=== PATIENT | female | born 1965 | race Hispanic/Latino ===

== ENCOUNTER 2022-02-12 07:18 | Emergency (ER) | payer OTHER ==
[2022-02-12 08:03] LABS: Urine Blood 1+ (Negative); Urine Glucose Negative (Negative); Urine Protein Negative (Negative); Urine Specific Gravity 1.015 (1.005-1.030); Urine pH 5.5 (5.0-7.0)
--- NOTE | 2022-02-12 08:18 | EDPHYS ---
Physician Documentation [facility] Name: Obdulia Novak Age: 56 yrs Sex: Female : 1965 Arrival Date: 02/12/2022 Time: 07:20 Bed 12 Private MD: ED Physician Narinder Hinojosa HPI: 02/12 08:14 This 56 yrs old Female presents to ER via Ambulatory with complaints of adriel Urinary Problem. 08:14 The patient presents with pelvic pain, that is located in/on the suprapubic area. adriel Onset: The symptoms/episode began/occurred yesterday. Modifying factors: The symptoms are alleviated by self cath, the symptoms are aggravated by nothing. Associated signs and symptoms: The patient has no apparent associated signs or symptoms. Severity of symptoms: At their worst the symptoms were mild, in the emergency department the symptoms are unchanged. The patient has experienced similar episodes in the past, multiple times. Historical: - Allergies: 08:05 No Known Allergies; ss - Immunization history:: Client reports receiving the 2nd dose of the Covid vaccine. - Social history:: Smoking status: Patient denies any tobacco usage or history of. - Family history:: not pertinent. ROS: 08:14 Positive for urinary symptoms, retention. adriel 08:14 Constitutional: Negative for fever, chills, and weight loss, Eyes: Negative for injury, pain, redness, and discharge, ENT: Negative for injury, pain, and discharge, Neck: Negative for injury, pain, and swelling, Cardiovascular: Negative for chest pain, palpitations, and edema, Respiratory: Negative for shortness of breath, cough, wheezing, and pleuritic chest pain, Back: Negative for injury and pain, : Negative for injury, bleeding, discharge, and swelling, MS/Extremity: Negative for injury and deformity, Skin: Negative for injury, rash, and discoloration, Neuro: Negative for headache, weakness, numbness, tingling, and seizure, Psych: Negative for depression, anxiety, suicide ideation, homicidal ideation, and hallucinations, Allergy/Immunology: Negative for hives, rash, and allergies, Endocrine: Negative for neck swelling, polydipsia, polyuria, polyphagia, and marked weight changes, Hematologic/Lymphatic: Negative for swollen nodes, abnormal bleeding, and unusual bruising. 08:14 Abdomen/GI: Positive for abdominal pain, of the suprapubic area, right lower quadrant and left lower quadrant. Exam: 08:14 Constitutional: This is a well developed, well nourished patient who is awake, alert, adriel and in no acute distress. Head/Face: Normocephalic, atraumatic. Eyes: Pupils equal round and reactive to light, extra-ocular motions intact. Lids and lashes normal. Conjunctiva and sclera are non-icteric and not injected. Cornea within normal limits. Periorbital areas with no swelling, redness, or edema. ENT: Nares patent. No nasal discharge, no septal abnormalities noted. Tympanic membranes are normal and external auditory canals are clear. Oropharynx with no redness, swelling, or masses, exudates, or evidence of obstruction, uvula midline. Mucous membranes moist. Neck: Trachea midline, no thyromegaly or masses palpated, and no cervical lymphadenopathy. Supple, full range of motion without nuchal rigidity, or vertebral point tenderness. No Meningismus. Chest/axilla: Normal chest wall appearance and motion. Nontender with no deformity. No lesions are appreciated. Cardiovascular: Regular rate and rhythm with a normal S1 and S2. No gallops, murmurs, or rubs. Normal PMI, no JVD. No pulse deficits. Respiratory: Lungs have equal breath sounds bilaterally, clear to auscultation and percussion. No rales, rhonchi or wheezes noted. No increased work of breathing, no retractions or nasal flaring. Abdomen/GI: Soft, non-tender, with normal bowel sounds. No distension or tympany. No guarding or rebound. No evidence of tenderness throughout. Back: No spinal tenderness. No costovertebral tenderness. Full range of motion. Skin: Warm, dry with normal turgor. Normal color with no rashes, no lesions, and no evidence of cellulitis. MS/ Extremity: Pulses equal, no cyanosis. Neurovascular intact. Full, normal range of motion. Neuro: Awake and alert, GCS 15, oriented to person, place, time, and situation. Cranial nerves II-XII grossly intact. Motor strength 5/5 in all extremities. Sensory grossly intact. Cerebellar exam normal. Normal gait. Psych: Awake, alert, with orientation to person, place and time. Behavior, mood, and affect are within normal limits. Vital Signs: 08:02 BP 123 / 72; Pulse 77; Resp 16; Temp 98.2(TE); Pulse Ox 100% on R/A; Weight 62.6 kg; ss Height 5 ft. 4 in. (162.56 cm); Pain 0/10; 08:02 Body Mass Index 23.69 (62.60 kg, 162.56 cm) ss [place] Coma Score: 08:14 Eye Response: spontaneous(4). Verbal Response: oriented(5). Motor Response: obeys adriel commands(6). Total: 15. MDM: 07:30 Patient medically screened. adriel 08:16 Differential diagnosis: nonspecific abdominal pain, urinary tract infection. Data adriel reviewed: vital signs, nurses notes, lab test result(s), urinalysis. Data interpreted: groundwater monitoring technician: not applicable for this patient encounter. rate is 77 beats/min, rhythm is regular, Pulse oximetry: on room air. Test interpretation: by ED physician or midlevel provider:. Counseling: I had a detailed discussion with the patient and/or guardian regarding: the historical points, exam findings, and any diagnostic results supporting the discharge/admit diagnosis, lab results. 02/12 08:00 Order name: Urine Culture [facility] 02/12 08:03 Order name: Urine Dipstick-Ancillary; Complete Time: 08:13 [facility] 02/12 08:00 Order name: Urine Dipstick-Ancillary (obtain specimen); Complete Time: 08:04 adriel Administered Medications: No medications were administered Disposition Summary: 02/12/22 08:17 Discharge Ordered Location: Home adriel Problem: new adriel Symptoms: have improved adriel Condition: Stable adriel Diagnosis - Retention of urine, unspecified adriel Followup: adriel - With: Private Physician - When: 2 - 3 days - Reason: Recheck today's complaints, Continuance of care, Re-evaluation by your physician Followup: adriel - With: Matheus Pierson MD - When: 2 - 3 days - Reason: Recheck today's complaints, Continuance of care, Re-evaluation by your physician Discharge Instructions: - Discharge Summary Sheet adriel - Acute Urinary Retention, Female adriel - Acute Urinary Retention, Female, [id number] adriel Forms: - Medication Reconciliation Form adriel - Thank You Letter adriel - Antibiotic Education adriel - Prescription Opioid Use adriel Signatures: Dispatcher [employer] EDNarinder Blank MD MD cha Smirch, Shelby, ERICA RN ss
--- NOTE | 2022-02-12 08:18 | ER ---
Nurse's Notes [facility] Name: Obdulia Novak Age: 56 yrs Sex: Female : 1965 Arrival Date: 02/12/2022 Time: 07:20 Bed 12 Private MD: Diagnosis: Retention of urine, unspecified Presentation: 02/12 08:02 Chief complaint: Patient states: "I drove in from [place] and I forgot my catheter ss supplies. I just got too full to relax my bladder and I woke up needing to go really bad." Pt was given catheter and self cathed in bathroom before triage and states she feels better. Coronavirus screen: Client denies travel out of the [place] in the last 14 days. Ebola Screen: Patient denies exposure to infectious person. Patient denies travel to an Ebola-affected area in the 21 days before illness onset. Initial Sepsis Screen: Does the patient meet any 2 criteria? No. Patient's initial sepsis screen is negative. Does the patient have a suspected source of infection? No. Patient's initial sepsis screen is negative. Risk Assessment: Do you want to hurt yourself or someone else? Patient reports no desire to harm self or others. Onset of symptoms was February 12, 2022. 08:02 Method Of Arrival: Ambulatory ss 08:02 Acuity: ANNMARIE 4 ss Historical: - Allergies: 08:05 No Known Allergies; ss - Immunization history:: Client reports receiving the 2nd dose of the Covid vaccine. - Social history:: Smoking status: Patient denies any tobacco usage or history of. - Family history:: not pertinent. Screenin:05 Abuse screen: Denies threats or abuse. Denies injuries from another. Nutritional ss screening: No deficits noted. Tuberculosis screening: Never had TB. Fall Risk None identified. Assessment: 08:05 General: Appears in no apparent distress. comfortable, Behavior is calm, cooperative, ss Denies fever, feeling ill, fatigue, chills. Pain: Denies pain. Neuro: Level of Consciousness is awake, alert, obeys commands, Oriented to person, place, time, situation. Cardiovascular: Capillary refill < 3 seconds is brisk in bilateral fingers. Respiratory: Airway is patent Respiratory effort is even, unlabored, Respiratory pattern is regular, symmetrical. Derm: Skin is intact, is healthy with good turgor, Skin is dry, Skin is pink, warm \\T\\ dry. normal. Musculoskeletal: Circulation, motion, and sensation intact. Range of motion: intact in all extremities, Swelling absent. Vital Signs: 08:02 BP 123 / 72; Pulse 77; Resp 16; Temp 98.2(TE); Pulse Ox 100% on R/A; Weight 62.6 kg; ss Height 5 ft. 4 in. (162.56 cm); Pain 0/10; 08:02 Body Mass Index 23.69 (62.60 kg, 162.56 cm) ss [place] Coma Score: 08:14 Eye Response: spontaneous(4). Verbal Response: oriented(5). Motor Response: obeys [facility] commands(6). Total: 15. ED Course: 07:20 Patient arrived in ED. rg4 07:29 Narinder Hinojosa MD is Attending Physician. adriel 08:02 Ashley Victoria, ERICA is Primary Nurse. ss 08:05 Triage completed. ss 08:05 Arm band placed on right wrist. ss 08:05 Patient has correct armband on for positive identification. Bed in low position. Call ss light in reach. 08:17 Matheus Pierson MD is Referral Physician. adriel 08:25 No provider procedures requiring assistance completed. Patient did not have IV access ss during this emergency room visit. Administered Medications: No medications were administered Medication: 08:05 VIS not applicable for this client. ss Outcome: 08:17 Discharge ordered by . adriel 08:25 Discharged to home ambulatory. ss 08:25 Condition: good 08:25 Discharge instructions given to patient, Instructed on discharge instructions, follow up and referral plans. Demonstrated understanding of instructions, follow-up care. 08:26 Patient left the ED. ss Signatures: Narinder Hinojosa MD MD cha Smirch, Shelby, ERICA RN Jyothi Kunz rg4
[2022-02-12 08:40] VITALS: BP 123/72; TEMP 98.2; O2SAT 100
== END 2022-02-12 08:26 | disposition home or self-care (01) ==
LOC: ER 07:18
DX: R33.9 Retention of urine, unspecified (principal); R10.2 Pelvic and perineal pain
CPT/HCPCS: 81003; 87086; 87088; 99281